=== PATIENT | female | born 1950 | race Caucasian/White ===

== ENCOUNTER → 2017-04-13 | Outpatient (CLI) | payer MEDICARE ==
[~2017-04-13] MED LIST: ASPI-1012 PO; BUSP5TAB3 PO; HYDR-4068 PO; LACT10SO8 PO; LORA0.5T2 PO; PANT40TA25 PO; PRAV40TA3 PO; SERT100T12 PO; TOLT4CAP13 PO; TRAZ-147 PO; [UNRECOGNIZED DRUG - OTHER] OU; vitamin b12 IM
== END | disposition home or self-care (01) ==
LOC: RAH 11:36
PROVIDERS: ATTEND Psychiatry & Neurology Neurology
DX: G31.9 Degenerative disease of nervous system, unspecified (principal); F07.81 Postconcussional syndrome
CPT/HCPCS: 70450

== ENCOUNTER → 2017-06-03 | Outpatient (CLI) | payer MEDICARE | END | disposition home or self-care (01) | LOC: RAH 10:07 | PROVIDERS: ATTEND Internal Medicine Gastroenterology | DX: K21.9 Gastro-esophageal reflux disease without esophagitis (principal) | CPT/HCPCS: G8996; G8997; G8998; 74230; 92611 ==

== ENCOUNTER → 2017-06-16 | Outpatient (CLI) | payer MEDICARE | END | disposition home or self-care (01) | LOC: RAH 08:39 | PROVIDERS: ATTEND Internal Medicine Gastroenterology | DX: K21.9 Gastro-esophageal reflux disease without esophagitis (principal); K44.9 Diaphragmatic hernia without obstruction or gangrene | CPT/HCPCS: 74240 ==

== ENCOUNTER → 2017-07-06 | Outpatient (CLI) | payer MEDICARE ==
[~2017-07-06] MED LIST changes: -TRAZ-147 PO; +TRAZ-187 PO
== END | disposition home or self-care (01) ==
LOC: RAH 09:20
PROVIDERS: ATTEND Surgery
DX: K43.2 Incisional hernia without obstruction or gangrene (principal); Z98.890 Other specified postprocedural states
CPT/HCPCS: 74176

== ENCOUNTER → 2018-04-13 | Outpatient (CLI) | payer MEDICARE ==
[2018-04-13 08:35] LABS: CREATININE 1.1 mg/dL (0.5-1.5)
== END | disposition home or self-care (01) ==
LOC: LAB 07:59
PROVIDERS: ATTEND Surgery
DX: R10.2 Pelvic and perineal pain (principal); R10.9 Unspecified abdominal pain
CPT/HCPCS: 36415; 82565; 84520

== ENCOUNTER → 2018-04-15 | Outpatient (CLI) | payer MEDICARE ==
[~2018-04-15] MED LIST changes: +IOHEXOL-350 75 ML VIAL IV ONE
== END | disposition home or self-care (01) ==
LOC: RAH 08:36
PROVIDERS: ATTEND Surgery
DX: R10.9 Unspecified abdominal pain (principal); R10.2 Pelvic and perineal pain; Z90.49 Acquired absence of other specified parts of digestive tract
CPT/HCPCS: 74177; Q9967

== ENCOUNTER 2018-10-17 07:03 | Observation (INO) | payer MEDICARE ==
[2018-10-14 10:51] LABS: BASOPHILS % (AUTO) 0.4 % (0.0-5.0); EOSINOPHILS % (AUTO) 2.3 % (0.0-8.0); HEMATOCRIT 41.3 % (36-48); LYMPHOCYTES % (AUTO) 25.6 % (21.0-51.0); MEAN CORPUSCULAR HEMOGLOBIN 31.6 pg (27.0-33.0); MEAN CORPUSCULAR HGB CONC 33.8 g/dL (32.0-36.0); MEAN CORPUSCULAR VOLUME 93.3 fL (79-99); MONOCYTES % (AUTO) 5.7 % (3.0-13.0); PLATELET COUNT (AUTO) 241 K/uL (130-400); RED BLOOD CELL COUNT(AUTO) 4.42 MIL/uL (4.00-5.50); RED CELL DISTRIBUTION WIDTH 12.7 % (11.0-15.5); WHITE BLOOD COUNT (AUTO) 5.4 K/uL (4.8-10.8)
[2018-10-14 11:00] LABS: CREATININE 0.9 mg/dL (0.5-1.5); CRP QUANTITATIVE 4.5 mg/L (0.00-9.0); POTASSIUM 4.9 mmol/L (3.5-5.1)
[2018-10-14 11:12] VITALS: BP 132/60
[2018-10-14 12:02] LABS: ERYTHROCYTE SEDIMENTATION RATE 9 MM/HR (0-30)
--- NOTE | 2018-10-14 14:21 | NUR ---
LABS REPORTED LABS TO DR. AHUJA. NO NEW ORDERS
[2018-10-17] VITALS (23 sets, daily range): BP systolic 116–151; BP diastolic 52–77
[~2018-10-17] VITALS: Ht 149.9 cm; Wt 76.0 kg
[~2018-10-17 07:03] MED LIST changes: -ASPI-1012 PO; -BUSP5TAB3 PO; +CLINDAMYCIN 900 MG/D5% WATER 50 ML IV SCH; +DEXAMETHASONE SOD PHOSPHATE 10MG/ML 1ML VIAL ONE; +FENTANYL CITRATE PF 50 MCG/1 ML 2ML VIAL ONE; +FERR325T22 PO; +GLYCOPYRROLATE 1 MG/5 ML SYRINGE ONE; -HYDR-4068 PO; -IOHEXOL-350 75 ML VIAL IV ONE; -LACT10SO8 PO; +LIDOCAINE PF 2% 5ML ABBOJECT ONE; +MIDAZOLAM HCL 1 MG/ML 2ML VIAL ONE; +NEOSTIGMINE 5MG/5ML SYR IV ONE; +OMEGA 3 KRILL OIL PO; +ONDA4TAB9 PO; +ONDANSETRON HCL 4 MG/2 ML VIAL ONE; +PROPOFOL 10 MG/ML 20ML VIAL IV ONE; +ROCURONIUM 10MG/1ML SYR 10 MG/ML ML ONE; -SERT100T12 PO; +SUCCINYLCHOLINE 200MG/10ML SYR ONE; +[UNRECOGNIZED DRUG - OTHER] INJ; -[UNRECOGNIZED DRUG - OTHER] OU; -vitamin b12 IM
--- NOTE | 2018-10-17 07:30 | NUR ---
POTENTIAL FOR INFECTION: NO SHAVING NEEDED TO LEFT KNEE / LEG PER SCARLET MOSLEY MA. WIPED LEFT KNEE / LEG WITH RIK: 2% CHLORHEXIDINE GLUCONATE CLOTH PATIENTS PRE-OP SKIN PREP PER SCARLET MOSLEY MA.
[2018-10-17] MEDS ORDERED: ROPIVACAINE 0.5% 5MG/ML 30ML IJ ONE (07:40)
[2018-10-17] MEDS ORDERED: PHENYLEPHRINE HCL 10 MG/ML 1ML VIAL IV ONE (07:42)
[2018-10-17] MEDS ORDERED: MIDAZOLAM HCL 1 MG/ML 2ML VIAL ONE (07:45)
[2018-10-17] MEDS ORDERED: LACTATED RINGERS 1000ML 1,000 ML IV ONE (08:00)
[2018-10-17] MEDS ORDERED: VANCOMYCIN 1.5 GM in SODIUM CHLORIDE 0.9% 250 ML IV SCH (08:28)
[2018-10-17] MEDS ORDERED: OXYCODONE HCL 10 MG TAB.SR.12H PO ONE (08:32)
[2018-10-17] MEDS ORDERED: KETOROLAC TROMETHAMINE 15MG/ML ONE (08:32)
[2018-10-17] MEDS ORDERED: ACETAMINOPHEN EXTRA STRENGTH 500 MG TABLET ONE (08:32)
[2018-10-17 08:55] LABS: APPEARANCE,URINE Clear (CLEAR); BILIRUBIN,URINE Negative (NEGATIVE); COLOR,URINE Yellow (YELLOW); GLUCOSE, URINE (UA) Negative (NEGATIVE); KETONES,URINE Negative (NEGATIVE); LEUKOCYTE ESTERASE ,URINE Small (NEGATIVE); NITRATE,URINE Negative (NEGATIVE); OCCULT BLOOD,URINE Negative (NEGATIVE); PROTEIN,URINE Negative (NEGATIVE)
[2018-10-17] MEDS ORDERED: VANCOMYCIN HCL 1 GM VIAL ONE (08:57)
[2018-10-17] MEDS ORDERED: TRANEXAMIC ACID 1000MG/10ML IV ONE (08:57)
[2018-10-17 09:06] LABS: BACTERIA,URINE Few /HPF (None Seen); RBC,URINE 0-1 /HPF (0-1)
[2018-10-17] MEDS ORDERED: FENTANYL CITRATE PF 50 MCG/1 ML 2ML VIAL ONE ×2 (09:20→10:33)
[2018-10-17] MEDS ORDERED: GENTAMICIN SULFATE 80 MG/2 ML VIAL ONE (09:58)
[2018-10-17] MEDS ORDERED: LIDOCAINE HCL 4% LTA SOL 4 ML VIAL ONE (11:27)
[2018-10-17] MEDS ORDERED: DiphenhydrAMINE HCL 50 MG/ML VIAL IVP PRN (11:45)
[2018-10-17] MEDS ORDERED: TEMAZEPAM 15 MG CAPSULE PO PRN (11:45)
[2018-10-17] MEDS ORDERED: ONDANSETRON HCL 4 MG/2 ML VIAL IVP PRN (11:45)
[2018-10-17] MEDS ORDERED: LIDOCAINE HCL-MPF 1% 2ML VIAL IVP PRN (11:45)
[2018-10-17] MEDS: ACETAMINOPHEN EXTRA STRENGTH 500 MG TABLET PO SCH ×2 (11:45→18:20)
[2018-10-17] MEDS ORDERED: POTASSIUM CHLORIDE 10% ELIXIR 20 MEQ/15 ML UDCUP PO PRN (11:45)
[2018-10-17] MEDS ORDERED: POTASSIUM CHLORIDE 20MEQ/100ML 100 ML IV PRN (11:45)
[2018-10-17] MEDS ORDERED: CALCIUM CARBONATE 500 MG TABLET PO PRN (11:45)
[2018-10-17] MEDS ORDERED: POTASSIUM CHLORIDE 20 MEQ ERTAB PO PRN (11:45)
[2018-10-17] MEDS ORDERED: TRAMADOL HCL 50 MG TABLET PO PRN (11:45)
[2018-10-17] MEDS ORDERED: MEPERIDINE-PF 25 MG/ML SYG ONE ×2 (12:33→12:43)
[2018-10-17] MEDS: SODIUM CHLORIDE 0.9% 1000ML 1,000 ML IV SCH ×2 (13:23→21:31)
[2018-10-17] MEDS: OXYCODONE HCL 5 MG TAB PO PRN ×3 (14:24→23:11)
[2018-10-17] MEDS ORDERED: CLINDAMYCIN 900 MG/D5% WATER 50 ML IV ONE (16:00)
[2018-10-17] MEDS: KETOROLAC TROMETHAMINE 15MG/ML IV PRN (16:01)
[2018-10-17] MEDS: CLINDAMYCIN 900 MG/D5% WATER 50 ML IVPB SCH (16:01)
[2018-10-17] MEDS ORDERED: ONDANSETRON 4 MG TABLET PO PRN (18:45)
[2018-10-17] MEDS: LORAZEPAM 2 MG TABLET PO SCH (20:05)
[2018-10-17] MEDS: ASPIRIN 325 MG TABLET PO SCH (20:05)
[2018-10-17] MEDS: PREGABALIN 25 MG CAP PO SCH (20:05)
[2018-10-17] MEDS ORDERED: TRAZODONE HCL 100 MG TABLET PO SCH (21:00)
[2018-10-18] MEDS: CLINDAMYCIN 900 MG/D5% WATER 50 ML IVPB SCH (00:15)
[2018-10-18] MEDS: ACETAMINOPHEN EXTRA STRENGTH 500 MG TABLET PO SCH ×3 (03:22→19:05)
[2018-10-18] MEDS: OXYCODONE HCL 5 MG TAB PO PRN ×5 (03:23→19:05)
[2018-10-18 03:27] VITALS: BP 129/68
[2018-10-18 04:22] LABS: HEMATOCRIT 36.5 % (36-48); MEAN CORPUSCULAR HEMOGLOBIN 31.7 pg (27.0-33.0); MEAN CORPUSCULAR VOLUME 93.1 fL (79-99); PLATELET COUNT (AUTO) 185 K/uL (130-400); RED BLOOD CELL COUNT(AUTO) 3.92 MIL/uL (4.00-5.50); RED CELL DISTRIBUTION WIDTH 12.6 % (11.0-15.5); WHITE BLOOD COUNT (AUTO) 7.1 K/uL (4.8-10.8)
[2018-10-18 04:38] LABS: CREATININE 0.7 mg/dL (0.5-1.5); POTASSIUM 3.4 mmol/L (3.5-5.1)
[2018-10-18] MEDS: SODIUM CHLORIDE 0.9% 1000ML 1,000 ML IV SCH (05:28)
[2018-10-18] MEDS: KETOROLAC TROMETHAMINE 15MG/ML IV PRN (06:59)
[2018-10-18 08:00] VITALS: BP 135/72
[2018-10-18] MEDS: ASPIRIN 325 MG TABLET PO SCH ×2 (08:07→19:04)
[2018-10-18] MEDS: LORAZEPAM 2 MG TABLET PO SCH ×2 (08:07→13:20)
[2018-10-18] MEDS: PREGABALIN 25 MG CAP PO SCH ×2 (08:08→19:04)
[2018-10-18] MEDS ORDERED: OMEGA 3 KRILL OIL PO SCH (09:00)
[2018-10-18] MEDS ORDERED: PHARMACY COMMUNICATION MISC SCH (09:00)
[2018-10-18] MEDS ORDERED: FERROUS SULFATE 325 MG TABLET.DR PO SCH (09:00)
[2018-10-18] MEDS ORDERED: POLYETHYLENE GLYCOL 3350 17 GM POWD.PACK PO SCH (09:00)
[2018-10-18] MEDS ORDERED: PANTOPRAZOLE SODIUM 40 MG TABLET.DR PO SCH (09:00)
[2018-10-18] MEDS ORDERED: FAMOTIDINE 20MG TAB 20 MG TAB PO SCH (09:00)
--- NOTE | 2018-10-18 09:00 | NUR ---
Pt stated when she took prn potassium this am, she experienced heartburn. Refused 2nd dose of prn potassium.
--- NOTE | 2018-10-18 10:00 | NUR ---
DCP CM met with pt and spouse discussed dc plans. Pt is independent prior to surgery, lives at home with spouse. Denies any equipments/services. Pt feels safe to go back home, spouse able to assist with transportation and needs as necessary. Pt agreeable to home w/HH and DME, [facility]MUNDO signed for [facility] and [facility] for standard walker and 3in1 chair. Faxed orders and clininicals to [facility] and [facility]. CM to cont to follow up. Addendum: 10/18/18 at 1652 by ANGEL CONTRERAS LVN CM Amended: Links added.
[2018-10-18] MEDS ORDERED: GENTAMICIN SULFATE 240 MG in SODIUM CHLORIDE 0.9% 100 ML IV SCH ×2 (10:40→11:00)
[2018-10-18 11:00] VITALS: BP 117/59
[2018-10-18] MEDS ORDERED: GENTAMICIN SULFATE 240 MG in SODIUM CHLORIDE 0.9% 100 ML IV ONE (11:00)
--- NOTE | 2018-10-18 11:58 | NUR ---
IV infiltrated. Unable to administer scheduled gentamycin. Pt refused to have new PIV inserted. Reported to Dr. Gordon. Rec'd order to start pt on macrobid 100 po bid. Orders entered and honored.
--- NOTE | 2018-10-18 13:00 | NUR ---
CM Note: [facility] approval and acceptance Spoke to [facility], pt has approval and acceptance. Primary nurse aware. Pt safe to dc home via private car once MD clear and once DME delivered. CM to cont to follow up.
[2018-10-18] MEDS ORDERED: NITROFURANTOIN MONOHYD/M-CRYST 100 MG CAPSULE PO SCH ×2 (13:32→21:00)
--- NOTE | 2018-10-18 15:00 | NUR ---
CM Note: [facility] approved standard walker no wheels, delivered in pt room Spoke to [facility], pt has approval and delivered standard walker no wheels in pt room. Pt does not qualify for 3 in 1 chair. Per spouse, he will [facility] once pt get home. Primary nurse aware. CM to cont to follow up.
[2018-10-18 16:00] VITALS: BP 144/66
[2018-10-18 19:04] VITALS: BP 151/66
[2018-10-18] MEDS ORDERED: HYDR-4457 PO (19:16)
[2018-10-18] MEDS ORDERED: ASPI-1012 PO (19:16)
[2018-10-18] MEDS ORDERED: KETOROLAC TROMETHAMINE 30MG/ML ONE (19:25)
[2018-10-18] MEDS ORDERED: KETOROLAC TROMETHAMINE 30MG/ML IM SCH (20:30)
--- NOTE | 2018-10-18 20:30 | NUR ---
DISCHARGE PATIENT DISCHARGED HOME VIA WHEELCHAIR AND CAR ,BELONGINGS,AND INSTRUCTIONS AT SIDE. DRESSING TO LEFT KNEE CHANGED INSCISION WELL APPROXIMATED NO DRAINAGE NOTED. REPORT GIVING TO GEENA BEDOLLA RN AT [facility].
[2018-10-18] MEDS ORDERED: Pravastatin Sodium 40 MG PO SCH (21:00)
[2018-10-20] MEDS ORDERED: BISACODYL 10 MG SUPP.RECT RC PRN (11:45)
== END 2018-10-18 20:20 | disposition home health service (06) ==
LOC: DAH 07:03 → 4AH 07:04 → DAH 07:04
PROVIDERS: ADMIT Orthopaedic Surgery; ATTEND Orthopaedic Surgery
DX: T84.092A Other mechanical complication of internal right knee prosthesis, initial encounter (principal); G89.29 Other chronic pain; M25.562 Pain in left knee; Y92.89 Other specified places as the place of occurrence of the external cause; Y79.2 Prosthetic and other implants, materials and accessory orthopedic devices associated with adverse incidents; Z79.899 Other long term (current) drug therapy
CPT/HCPCS: 27487; 36415 ×2; 80048 ×2; 81001; 85025; 85027; 85651; 86140; 87088; 87641; 88300; 88305; 88311; 96365; 96366 ×2; 96367; 96375; 96376; 97116 ×3; 97161; 97530 ×2; A4600; A4649 ×5; A4930 ×2; A6219; A6223; C1763; C1776 ×2; G0168; G0378 ×29; G8978; G8979; G8980; G8981; G8982; G8983; J0330; J1100; J1580 ×3; J1885 ×5; J2001; J2175 ×2; J2250 ×2; J2370; J2405; J2704; J2710; J2795; J3010 ×3; J3370 ×2; J3490 ×5; J7030; J7120 ×2; 96374

== ENCOUNTER → 2021-06-18 | Outpatient (CLI) | payer MEDICARE ==
[~2021-06-18] MED LIST changes: +ASPI-1012 PO; -CLINDAMYCIN 900 MG/D5% WATER 50 ML IV SCH; -DEXAMETHASONE SOD PHOSPHATE 10MG/ML 1ML VIAL ONE; -FENTANYL CITRATE PF 50 MCG/1 ML 2ML VIAL ONE; -GLYCOPYRROLATE 1 MG/5 ML SYRINGE ONE; +HYDR-4457 PO; -LIDOCAINE PF 2% 5ML ABBOJECT ONE; -MIDAZOLAM HCL 1 MG/ML 2ML VIAL ONE; -NEOSTIGMINE 5MG/5ML SYR IV ONE; +ONDA-104 PO; -ONDA4TAB9 PO; -ONDANSETRON HCL 4 MG/2 ML VIAL ONE; -PANT40TA25 PO; +PANT40TA54 PO; -PROPOFOL 10 MG/ML 20ML VIAL IV ONE; -ROCURONIUM 10MG/1ML SYR 10 MG/ML ML ONE; -SUCCINYLCHOLINE 200MG/10ML SYR ONE; -TOLT4CAP13 PO; +TOLT4CAP27 PO
== END | disposition home or self-care (01) ==
LOC: RAH 12:47
PROVIDERS: ATTEND Internal Medicine
DX: R94.31 Abnormal electrocardiogram [ECG] [EKG] (principal)
CPT/HCPCS: 93306

== ENCOUNTER → 2021-08-07 | Outpatient (CLI) | payer MEDICARE | END | disposition home or self-care (01) | LOC: RAH 09:42 | PROVIDERS: ATTEND Surgery | DX: R22.42 Localized swelling, mass and lump, left lower limb (principal); R63.5 Abnormal weight gain | CPT/HCPCS: 93971 ==

== ENCOUNTER 2022-01-31 12:28 | Emergency (ER) | payer MEDICARE ==
[~2022-01-31] VITALS: Ht 149.9 cm; Wt 79.8 kg
[2022-01-31] MEDS ORDERED: 0.9% NACL 500ML IV.SOLN 500 ML IV SCH (13:00)
[2022-01-31] MEDS ORDERED: KETOROLAC 30MG VIAL (30MG/ML) IVP ONE (13:00)
[2022-01-31] MEDS ORDERED: PROMETHAZINE HCL 25 MG/ML 1ML AMPULE IM ONE (13:00)
[2022-01-31] MEDS ORDERED: CYCLOBENZAPRINE HCL 10 MG TABLET PO ONE (13:00)
[2022-01-31 13:15] LABS: BASOPHILS % (AUTO) 0.6 % (0.0-5.0); EOSINOPHILS % (AUTO) 2.3 % (0.0-8.0); HEMATOCRIT 44.4 % (36-48); LYMPHOCYTES % (AUTO) 24.3 % (21.0-51.0); MEAN CORPUSCULAR HEMOGLOBIN 28.7 pg (27.0-33.0); MEAN CORPUSCULAR HGB CONC 32.9 g/dL (32.0-36.0); MEAN CORPUSCULAR VOLUME 87.4 fL (79-99); MONOCYTES % (AUTO) 7.5 % (3.0-13.0); PLATELET COUNT (AUTO) 299 K/uL (130-400); RED BLOOD CELL COUNT(AUTO) 5.08 MIL/uL (4.00-5.50); RED CELL DISTRIBUTION WIDTH 12.8 % (11.0-15.5); WHITE BLOOD COUNT (AUTO) 7.1 K/uL (4.8-10.8)
[2022-01-31 13:27] LABS: CREATININE 1.1 mg/dL (0.5-1.5); POTASSIUM 4.4 mmol/L (3.5-5.1)
[2022-01-31 13:31] LABS: ALBUMIN 3.8 g/dL (3.5-5.0); CRP QUANTITATIVE 4.9 mg/L (0.00-9.0); TOTAL PROTEIN, SERUM 7.6 g/dL (6.0-8.3)
[2022-01-31] MEDS ORDERED: NAPR-1180 PO (13:54)
[2022-01-31] MEDS ORDERED: CYCL10TA16 PO (13:54)
[2022-01-31] MEDS ORDERED: ONDA4TAB10 PO (13:55)
[2022-01-31 14:10] VITALS: BP 154/57
== END 2022-01-31 14:17 | disposition home or self-care (01) ==
LOC: EDH 12:28
DX: G43.909 Migraine, unspecified, not intractable, without status migrainosus (principal); F41.9 Anxiety disorder, unspecified; E66.9 Obesity, unspecified; Z68.35 Body mass index [BMI] 35.0-35.9, adult; Z79.82 Long term (current) use of aspirin; Z88.0 Allergy status to penicillin; Z88.1 Allergy status to other antibiotic agents; Z88.2 Allergy status to sulfonamides
CPT/HCPCS: 99285; 96374; 70450; 80053; 85025; 86140; 36415; 96372; J2550; J1885

== ENCOUNTER → 2022-07-23 | Outpatient (CLI) | payer MEDICARE ==
[~2022-07-23] MED LIST changes: +CYCL10TA16 PO; +NAPR-1180 PO; +ONDA4TAB10 PO
== END | disposition home or self-care (01) ==
LOC: RAH 13:32
PROVIDERS: ATTEND Internal Medicine
DX: Z01.818 Encounter for other preprocedural examination (principal)
CPT/HCPCS: 71046

== ENCOUNTER 2022-08-26 07:30 | Inpatient (IN) | payer MEDICARE ==
[2022-08-24 11:59] LABS: BASOPHILS % (AUTO) 0.8 % (0.0-5.0); EOSINOPHILS % (AUTO) 3.5 % (0.0-8.0); HEMATOCRIT 43.4 % (36-48); LYMPHOCYTES % (AUTO) 26.9 % (21.0-51.0); MEAN CORPUSCULAR HEMOGLOBIN 29.3 pg (27.0-33.0); MEAN CORPUSCULAR HGB CONC 32.5 g/dL (32.0-36.0); MONOCYTES % (AUTO) 7.1 % (3.0-13.0); NEUTROPHILS % (AUTO) 61.4 % (40.0-77.0); PLATELET COUNT (AUTO) 276 K/uL (130-400); RED BLOOD CELL COUNT(AUTO) 4.82 MIL/uL (4.00-5.50); RED CELL DISTRIBUTION WIDTH 11.9 % (11.0-15.5); WHITE BLOOD COUNT (AUTO) 6.2 K/uL (4.8-10.8)
[2022-08-24 12:05] VITALS: BP 134/74
[2022-08-24 12:12] LABS: INR 0.93 (0.85-1.15); PROTHROMBIN TIME 9.8 SEC (9.6-11.6)
[2022-08-24 12:13] LABS: PARTIAL THROMBOPLASTIN TIME 25.5 SEC (26.3-35.5)
[2022-08-26] VITALS (20 sets, daily range): BP systolic 102–152; BP diastolic 49–74
[~2022-08-26] VITALS: Ht 149.9 cm; Wt 83.4 kg
[~2022-08-26 07:30] MED LIST changes: -ASPI-1012 PO; -FERR325T22 PO; -HYDR-4457 PO; +HYDR12.54 PO; +HYOS-28 PO; +ISOS20TA85 PO; -ONDA-104 PO; -ONDA4TAB10 PO; +PHEN-615 PO; +VENL-191 PO
[2022-08-26] MEDS ORDERED: LACTATED RINGERS 1000ML 1,000 ML IV ONE (11:46)
[2022-08-26 12:38] LABS: CREATININE 0.9 mg/dL (0.5-1.5)
[2022-08-26] MEDS ORDERED: DEXAMETHASONE SOD PHOSPHATE 10MG/ML 1ML VIAL ONE (15:34)
[2022-08-26] MEDS ORDERED: PROPOFOL 10 MG/ML 20ML VIAL IV ONE (15:34)
[2022-08-26] MEDS ORDERED: SUCCINYLCHOLINE CHLORIDE 20 MG/ML 10 ML VIAL ONE (15:34)
[2022-08-26] MEDS ORDERED: ONDANSETRON 4MG INJ ONE (15:35)
[2022-08-26] MEDS ORDERED: ROCURONIUM 10MG/1ML SYR 10 MG/ML ML ONE (15:35)
[2022-08-26] MEDS ORDERED: FENTANYL CITRATE PF 50 MCG/1 ML 2ML VIAL ONE (15:35)
[2022-08-26] MEDS ORDERED: THROMBIN-JMI 5000 UNIT/VIAL TP ONE ×2 (15:48→18:36)
[2022-08-26] MEDS ORDERED: VANCOMYCIN 1G/250ML KIT 250 ML IV ONE ×3 (17:32→19:17)
[2022-08-26] MEDS ORDERED: BUPIVACAINE/PF 0.25% 30ML VIAL IJ ONE (17:32)
[2022-08-26] MEDS ORDERED: MORPHINE PF 100MG/10ML AMP IV ONE (17:33)
[2022-08-26] MEDS ORDERED: CEFAZOLIN SODIUM 1 GM VIAL ONE (17:40)
[2022-08-26] MEDS ORDERED: MIDAZOLAM HCL 1 MG/ML 2ML VIAL ONE (17:51)
[2022-08-26] MEDS ORDERED: VANCOMYCIN 1G VIAL IV ONE (17:55)
[2022-08-26] MEDS ORDERED: VANCOMYCIN 1G VIAL IRRIG ONE (18:42)
[2022-08-26] MEDS ORDERED: NEOSTIGMINE 5MG/5ML SYR IV ONE (20:15)
[2022-08-26] MEDS ORDERED: GLYCOPYRROLATE 1 MG/5 ML SYRINGE ONE (20:15)
[2022-08-26] MEDS ORDERED: MEPERIDINE-PF 25 MG/ML SYG ONE (20:45)
[2022-08-26] MEDS ORDERED: HYOSCYAMINE SULFATE 0.125 MG TAB.SUBL SL PRN (22:00)
[2022-08-26] MEDS ORDERED: NALOXONE HCL 0.4 MG/1 ML ML IVP PRN (22:00)
[2022-08-26] MEDS: LORAZEPAM 0.5 MG TABLET PO SCH (22:00)
[2022-08-26] MEDS ORDERED: 0.9%NACL 1000ML 1,000 ML IV SCH (22:00)
[2022-08-26] MEDS ORDERED: DiphenhydrAMINE HCL 50 MG/ML VIAL IV PRN (22:00)
[2022-08-26] MEDS ORDERED: DIPHENHYDRAMINE HCL 25 MG CAPSULE PO PRN (22:00)
[2022-08-26] MEDS ORDERED: MORPHINE PCA 50MG/50ML 50 ML IV PRN (22:00)
[2022-08-26] MEDS ORDERED: ACETAMINOPHEN WITH CODEINE 1 TAB TAB PO PRN ×2 (22:00)
[2022-08-26] MEDS ORDERED: ONDANSETRON 4MG INJ IVP PRN (22:00)
[2022-08-26] MEDS: TRAZODONE HCL 100 MG TABLET PO SCH (22:31)
[2022-08-26] MEDS: LACTATED RINGERS 1000ML 1,000 ML IV SCH (22:31)
[2022-08-26] MEDS: CYCLOBENZAPRINE HCL 10 MG TABLET PO SCH (22:31)
[2022-08-27] VITALS (8 sets, daily range): BP systolic 84–149; BP diastolic 44–90
[2022-08-27] MEDS: PHENTERMINE HCL 37.5 MG PO SCH (08:47)
[2022-08-27] MEDS: NAPROXEN 500 MG TABLET PO SCH ×2 (09:00→18:00)
[2022-08-27] MEDS: CYCLOBENZAPRINE HCL 10 MG TABLET PO SCH ×2 (09:00→20:22)
[2022-08-27] MEDS: VENLAFAXINE HCL 75 MG TAB PO SCH (09:20)
[2022-08-27] MEDS: FISH OIL 1000 MG/CAP PO SCH ×2 (09:22→20:22)
[2022-08-27] MEDS: OXYBUTYNIN CHLORIDE 5 MG TABLET PO SCH ×3 (09:23→20:22)
[2022-08-27] MEDS: LORAZEPAM 0.5 MG TABLET PO SCH ×3 (09:23→20:24)
[2022-08-27] MEDS: ISOSORBIDE MONONITRATE 20 MG TABLET PO SCH (09:23)
[2022-08-27] MEDS: HYDROCHLOROTHIAZIDE 25 MG TABLET PO SCH (09:23)
[2022-08-27] MEDS: PANTOPRAZOLE 40 MG TAB DR PO SCH (09:23)
[2022-08-27] MEDS: LACTATED RINGERS 1000ML 1,000 ML IV SCH (12:18)
[2022-08-27] MEDS: DOCUSATE SODIUM 100 MG CAP PO SCH ×2 (17:22→21:49)
[2022-08-27] MEDS: TRAZODONE HCL 100 MG TABLET PO SCH (20:22)
[2022-08-27] MEDS ORDERED: SIMVASTATIN 20 MG TABLET PO SCH (21:00)
[2022-08-28 03:35] VITALS: BP 105/61
[2022-08-28] MEDS: DOCUSATE SODIUM 100 MG CAP PO SCH ×2 (05:34→15:09)
[2022-08-28] MEDS: LACTATED RINGERS 1000ML 1,000 ML IV SCH (05:34)
[2022-08-28 08:00] VITALS: BP 110/62
[2022-08-28] MEDS: NAPROXEN 500 MG TABLET PO SCH (08:49)
[2022-08-28] MEDS: ISOSORBIDE MONONITRATE 20 MG TABLET PO SCH (08:49)
[2022-08-28] MEDS: PANTOPRAZOLE 40 MG TAB DR PO SCH (08:50)
[2022-08-28] MEDS: OXYBUTYNIN CHLORIDE 5 MG TABLET PO SCH ×2 (08:50→15:09)
[2022-08-28] MEDS: LORAZEPAM 0.5 MG TABLET PO SCH ×2 (08:50→15:09)
[2022-08-28] MEDS: HYDROCHLOROTHIAZIDE 25 MG TABLET PO SCH (08:50)
[2022-08-28] MEDS: CYCLOBENZAPRINE HCL 10 MG TABLET PO SCH (08:50)
[2022-08-28] MEDS: VENLAFAXINE HCL 75 MG TAB PO SCH (08:50)
[2022-08-28] MEDS: FISH OIL 1000 MG/CAP PO SCH (08:50)
[2022-08-28] MEDS: PHENTERMINE HCL 37.5 MG PO SCH (09:00)
[2022-09-26] MEDS ORDERED: CYANOCOBALAMIN 1000 MCG IM SCH (09:00)
== END 2022-08-28 17:25 | DRG 460 ==
LOC: EDSTATUS 10:21 → DAHIP 11:53 → 4CH 21:19
PROVIDERS: ADMIT Neuromusculoskeletal Medicine & OMM; ATTEND Neuromusculoskeletal Medicine & OMM
PROC: 01NB0ZZ Release Lumbar Nerve, Open Approach (ICD-10-PCS; 2022-08-26)
PROC: 0SG0071 Fusion of Lumbar Vertebral Joint with Autologous Tissue Substitute, Posterior Approach, Posterior Column, Open Approach (ICD-10-PCS; principal; 2022-08-26 17:49)
DX: M48.062 Spinal stenosis, lumbar region with neurogenic claudication (principal); M54.17 Radiculopathy, lumbosacral region; Z20.822 Contact with and (suspected) exposure to COVID-19
CPT/HCPCS: 36415; 72110; 80048; 85025; 85610; 85730; 87426; 97039; G0378; J0330; J0690; J1030; J1100; J2175; J2250; J2270; J2274; J2405; J2704; J2710; J3010; J3370; J3490; J7120

== ENCOUNTER → 2023-07-30 | Outpatient (CLI) | payer MEDICARE ==
[~2023-07-30] MED LIST changes: +GADOTERATE MEGLUMINE 10 MMOL/20 ML VIAL IV ONE
== END | disposition home or self-care (01) ==
LOC: RAH 08:45
PROVIDERS: ATTEND Internal Medicine Gastroenterology
DX: R10.11 Right upper quadrant pain (principal); R16.0 Hepatomegaly, not elsewhere classified; Z90.49 Acquired absence of other specified parts of digestive tract
CPT/HCPCS: 74183; A9575

== ENCOUNTER → 2023-12-29 | Outpatient (CLI) | payer MEDICARE ==
[~2023-12-29] MED LIST changes: -GADOTERATE MEGLUMINE 10 MMOL/20 ML VIAL IV ONE; +IOHEXOL 350 MG/ML 100ML INFUS..BTL IV ONE
== END | disposition home or self-care (01) ==
LOC: RAH 09:30
PROVIDERS: ATTEND Surgery
DX: R10.11 Right upper quadrant pain (principal); K29.70 Gastritis, unspecified, without bleeding; M79.7 Fibromyalgia; K91.1 Postgastric surgery syndromes; Z90.49 Acquired absence of other specified parts of digestive tract
CPT/HCPCS: 74177; Q9967

== ENCOUNTER → 2024-05-19 | Outpatient (CLI) | payer MEDICARE ==
[~2024-05-19] MED LIST changes: -IOHEXOL 350 MG/ML 100ML INFUS..BTL IV ONE; +ISOS-58 PO; -ISOS20TA85 PO; -VENL-191 PO; +VENL-83 PO
[2024-05-19 15:01] LABS: CREATININE 1.3 mg/dL (0.5-1.0)
== END | disposition home or self-care (01) ==
LOC: LAB 14:09
PROVIDERS: ATTEND Neuromusculoskeletal Medicine & OMM
DX: M54.51 Vertebrogenic low back pain (principal)
CPT/HCPCS: 36415; 82565; 84520

== ENCOUNTER → 2024-05-24 | Outpatient (CLI) | payer MEDICARE ==
[~2024-05-24] MED LIST changes: +GADOTERATE MEGLUMINE 10 MMOL/20 ML VIAL IV ONE; +IOHEXOL-350 75 ML VIAL IV ONE
--- NOTE | 2024-05-24 11:08 | HMCIMG ---
CT LUMBAR SPINE W/WO CONTRAST HISTORY: Radiculopathy COMPARISON: None TECHNIQUE: Multiple sequential axial images of the lumbar spine were obtained including post processing sagittal and coronal reconstruction images. Patient was given 75 cc of Omnipaque through intravenous route. FINDINGS: Orthopedic fixation plates and screws are seen traversing the L3, L4 levels with disc fusion at L4-5 level. Causing artifacts limiting evaluation. There are degenerative changes with lumbar spine spondylosis. Central canal narrowings are seen at L2-3, L3-4, L4-5 and L5-S1 levels distended. There is no loss of vertebral height. Evaluation for disc and cord pathology is limited with CT study. No evidence of fracture or dislocation is seen. IMPRESSION: 1. No fracture is seen. DJD with lumbar spine spondylosis with central canal narrowing. The study is limited due to artifacts. CT was performed with one or more following dose reduction techniques: automated exposure control, adjustment of the mA and kv according to patient's size, or use of a iterative reconstruction technique.
--- NOTE | 2024-05-24 13:14 | HMCIMG ---
MR SPINAL CANAL, LUMB W/WO CON HISTORY: Radiculopathy COMPARISON: None TECHNIQUE: MRI of the lumbar spine was performed utilizing multiple pulse sequences in axial , coronal and sagittal plane. Patient was given 16 cc of Clariscan through intravenous route. FINDINGS: Orthopedic fixation plates and screws are seen traversing the L3, L4 and L5 levels with paramagnetic susceptibility artifacts limiting evaluation. No abnormal signal intensity is seen of the visualized bony structure. No loss of vertebral height is seen. There is straightening of normal lumbar curvature which may be related to muscle spasm or positioning. Degenerative disc signals are present at all lumbar spine levels. Visualized distal conus is unremarkable. At the L2-3 level, there is spondylotic disc causing anterior thecal sac compression with bilateral lateral recess stenosis and bilateral neural foraminal stenosis. The thecal sac measures approximately 3.31 mm in its anterior posterior dimension. At the L3-4 level, there is spondylotic disc causing anterior thecal sac compression with bilateral lateral recess stenosis and bilateral neural foraminal stenosis. The thecal sac measures approximately 7.9 mm in its anterior posterior dimension. At the L4-5 level, there is spondylotic disc causing anterior thecal sac compression with bilateral lateral recess stenosis and bilateral neural foraminal stenosis. The thecal sac measures approximately 8.2 mm in its anterior posterior dimension. At the L5-S1 level, there is spondylotic disc causing anterior thecal sac compression with bilateral lateral recess stenosis and bilateral neural foraminal stenosis. The thecal sac measures approximately 6.5 mm in its anterior posterior dimension. IMPRESSION: 1. DJD with lumbar spine spondylosis and postop changes as described above with central canal narrowing. This is a limited study due to artifacts.
== END | disposition home or self-care (01) ==
LOC: RAH 07:50
PROVIDERS: ATTEND Neuromusculoskeletal Medicine & OMM
DX: M47.26 Other spondylosis with radiculopathy, lumbar region (principal); M48.07 Spinal stenosis, lumbosacral region
CPT/HCPCS: 72158; 72133; Q9967; A9575